=== PATIENT | male | born 1985 | race Caucasian/White ===

== ENCOUNTER 2018-01-03 13:56 | Emergency (ER) | payer MEDICARE ==
[~2018-01-03] VITALS: Ht 172.7 cm; Wt 75.7 kg
[2018-01-03 14:00] VITALS: BP 107/50
--- NOTE | 2018-01-03 14:12 | NUR ---
PT AMBULATES TO BED 8
[2018-01-03 14:14] VITALS: BP 107/50
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
--- NOTE | 2018-01-03 15:03 | NUR ---
PT LWBS AT THIS TIME, STATES "IM GOING TO GO TO A DIFFERENT HOSPITAL"
== END 2018-01-03 15:04 | disposition left against medical advice (07) ==
LOC: MED 13:56
DX: R22.32 Localized swelling, mass and lump, left upper limb (principal); Z53.21 Procedure and treatment not carried out due to patient leaving prior to being seen by health care provider

== ENCOUNTER 2019-12-31 16:45 | Emergency (ER) | payer BC, MEDICARE ==
[~2019-12-31] VITALS: Ht 172.7 cm; Wt 61.2 kg
[2019-12-31 16:55] VITALS: BP 112/44
--- NOTE | 2019-12-31 16:59 | NUR ---
AMB TO BED 06
[2019-12-31] MEDS ORDERED: IBUPROFEN 600 MG TAB PO ONE (17:05)
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
[2019-12-31 17:47] VITALS: BP 112/44
--- NOTE | 2019-12-31 17:48 | NUR ---
Patient discharged with v/s stable. Written and verbal after care instructions given and explained. Patient alert, oriented and verbalized understanding of instructions. Ambulatory with steady gait. All questions addressed prior to discharge. ID band removed. Patient advised to follow up with PMD. Rx of IBUPROFEN 600mg given. Patient educated on indication of medication including possible reaction and side effects. Opportunity to ask questions provided and answered.
== END 2019-12-31 17:48 | disposition home or self-care (01) ==
LOC: MED 16:45
DX: S43.492A Other sprain of left shoulder joint, initial encounter (principal); V49.9XXA Car occupant (driver) (passenger) injured in unspecified traffic accident, initial encounter; Y93.89 Activity, other specified; Y92.89 Other specified places as the place of occurrence of the external cause; Y99.8 Other external cause status
CPT/HCPCS: 73000; 73030; 99284; Q0092